=== PATIENT | male | born 1940 | race Caucasian/White ===

== ENCOUNTER 2024-05-16 13:20 | Outpatient (RCR) | payer OTHER, SELFPAY | END 2024-05-16 23:59 | disposition home or self-care (01) | LOC: RPT 13:20 | PROVIDERS: ATTENDING PHYSICIAN Nurse Practitioner Family; FAMILY PHYSICIAN Family Medicine | DX: Z47.1 Aftercare following joint replacement surgery (principal); Z96.611 Presence of right artificial shoulder joint; Z73.6 Limitation of activities due to disability | CPT/HCPCS: 97110; 97112; 97162 ==

== ENCOUNTER 2024-05-28 13:01 | Outpatient (RCR) | payer OTHER, SELFPAY | END 2024-05-28 23:59 | disposition home or self-care (01) | LOC: RPT 13:01 | PROVIDERS: ATTENDING PHYSICIAN Nurse Practitioner Family; FAMILY PHYSICIAN Family Medicine | DX: G57.92 Unspecified mononeuropathy of left lower limb (principal); R26.89 Other abnormalities of gait and mobility | CPT/HCPCS: 80048; 85025; 97110; 97112 ==

== ENCOUNTER 2024-05-28 14:09 | Emergency (ER) | payer OTHER, SELFPAY ==
[2024-05-28 14:12] VITALS: BP 113/62
[2024-05-28 15:45] VITALS: BP 109/57; BP 90/52; BP 95/54; PULSE 76; PULSE 80; PULSE 85
--- NOTE | 2024-05-28 15:49 | ED.GENMED ---
History of Present Illness
General
Chief Complaint: Blood Pressure Problem
Source: patient
Time Seen by Provider: 05/28/24 15:24
History of Present Illness
History of Present Illness:
83-year-old male with past medical history of [id number] diabetes presenting the emergency department from outpatient physical therapy where his blood pressure was noted to be low today and patient felt a little bit lightheaded during his
exercise. He reports that since getting to the emergency department his symptoms have fully resolved. notes that patient's blood pressure was also little bit low yesterday but patient denies any recent illnesses, fevers, nausea, vomiting,
bowel changes or any other concerns. 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 He has been going for the last few weeks without any problems. Patient is on losartan 50 mg p.o. once daily and reports good compliance with this.
He did this medication today. No other concerns at present time.
Past History
Past History
ED Past Medical History: NIDDM
ED Past Surgical History: Orthopedic and Other
Social History
Tobacco: Non-smoker
Alcohol: None
Drug: None
Personal:
Living: with family
Review of Systems
Review of Systems
All Other Systems: ROS reviewed and negative except as documented in HPI and ROS
Phy Exam
Physical Exam
Physical Exam:
GENERAL: Alert , in no apparent distress
HEAD: NCAT
EYE: conjunctiva clear
NECK: Supple
ENT: o/p clr, mmm.
CARDIAC: Regular rate and rhythm
LUNGS: Clear breath sounds bilaterally, no acute respiratory distress, no wheezes/rales/rhonchi
NEUROLOGICAL: Alert and oriented
SKIN: Warm and dry, skin intact.
MUSCULOSKELETAL: well perfused.
PSYCH: Normal and appropriate interaction.
Scores
Heart Failure Risk
Heart Failure Risk Score: Not Applicable
Heart Score for Chest Pain Patients
STEMI patient?: Not applicable
Withdrawal Assessment of Alcohol
Withdrawal Assessment Completed?: Not applicable
Course
Orders/Labs/Results
Orders:
Orders
05/28/24 15:43
Orthostatic VS- Treatment ONCE
05/28/24 15:54
0.9% Sodium Chloride 1000 ml [Nss] 1,000 ml IV BOLUS
05/28/24 16:04
Basic Metabolic Panel Urgent
Complete Blood Count/With Diff Urgent
Abnormal Lab Results
05/28/24
16:04
RBC 3.95 L 10^6/uL
(4.70-6.10)
Hct 37.6 L %
(39.0-52.0)
MCV 95.2 H fL
(80.0-94.0)
MCH 33.4 H pg
(27.0-31.0)
MPV 10.6 H fL
(7.4-10.4)
Absolute Monos (auto) 0.9 H 10^3/uL
(0.1-0.6)
Monocytes % 10.5 H %
(1.7-9.3)
Potassium 5.2 H mmol/L
(3.5-5.1)
BUN 24 H mg/dl
(9-20)
05/28/24 16:04
05/28/24 16:04
Vital Signs
Initial and Last Documented VS:
Initial Vital Signs
Temp Pulse Resp BP Pulse Ox
97.8 F 77 16 113/62 95
05/28/24 14:12 05/28/24 14:12 05/28/24 14:12 05/28/24 14:12 05/28/24 14:12
Last Documented Vital Signs
Temp Pulse Resp BP Pulse Ox
97.8 F 75 16 137/71 99
05/28/24 14:12 05/28/24 17:45 05/28/24 17:45 05/28/24 17:45 05/28/24 17:45
MDM/Problems Addressed
Differential Diagnosis Includes:
orthostasis, medication interaction, no signs/symptoms to suggest infection
MDM/Problems Addressed:
83-year-old male presenting the emergency department for evaluation of low blood pressure while at physical therapy. Noted some mild lightheadedness. I suspect orthostasis or medication interaction to be the most likely. I discussed with patient
that we will check orthostatics here. If his blood pressure remains low will check labs and treat with IV fluids. If normal and patient remains asymptomatic can be discharged home.
Chronic conditions affecting care: HTN
Acute Exacerbation and/or Progression of Chronic Illness: HTN
*Pulse Oximetry
Patient hypoxic: no
*Critical Care Note
Total Time (30-74mins, 75-104mins- exclusive of procedures): Not Applicable
Comment
Comment:
Patient was asymptomatic during orthostatics however his blood pressure was as low as 90/52. Will treat with 1 L normal saline and check labs. Disposition pending
Patient Management
Escalation/DeEscalation of care consider admission/obs:
Patient's blood pressure much improved following IV fluids. He reports he is asymptomatic and would like to be discharged home. I again discussed the importance of checking blood pressure at home over the next few days prior to taking his blood
pressure medicine as if he already has a low blood pressure and takes his blood pressure medicine is likely to lower his blood pressure further and can cause complications. I did encourage the patient to contact his primary care provider for close
follow-up. Aware of return precautions to the ER but otherwise stable for discharge home.
ED Attending Note
-
Portions of this chart may have been created with voice recognition software.� Occasional wrong word or��sound alike� substitutions may have occurred due to the inherent limitations of voice recognition software.
Discharge Plan
Departure
Patient Disposition: Home (Routine Discharge)
Date of Disposition: 05/28/24
Time of Disposition: 17:48
Patient with high blood pressure during this ER visit?: No
Discharge Problem:
Orthostasis
Instructions: Orthostatic hypotension
Referrals:
Doreen Paul NP [Family Provider] -
Interventions
Interventions:
*Risk Screen - Suicide Last Done: 05/28/24 14:12
*General Assessment Last Done: 05/28/24 14:12
*Neglect/Abuse Screening Last Done: 05/28/24 14:12
*Nursing Disposition Last Done: 05/28/24 17:58
ED- Cardiac Assessment Last Done: 05/28/24 16:47
ED- Neurological Assessment Last Done: 05/28/24 16:47
ED- Pulmonary Assessment Last Done: 05/28/24 16:47
Discharge Date and Time
Discharge Date/Time: 05/28/24 17:59
Print Language: SPANISH
[2024-05-28 15:54] VITALS: BMI 23.6
[2024-05-28] MEDS: NSS 1000 IV (16:02)
[2024-05-28 16:17] LABS: % Basophils 0.4 % (0-2); % Eosinophils 1.9 % (0-6); % Immature Granulocytes 0.2 % (0-0.5); % Monocytes 10.5 % (1.7-9.3); Absolute Eosinophils 0.2 10^3/uL (0-0.7); Absolute Lymphocytes 2.6 10^3/uL (1.2-3.4); Absolute Monocytes 0.9 10^3/uL (0.1-0.6); Absolute Neutrophils 4.9 10^3/uL (1.4-6.5); Hematocrit 37.6 % (39.0-52.0); Hemoglobin 13.2 g/dL (13.0-18.0); Mean Corp Hgb Conc. 35.1 g/dL (33.0-37.0); Mean Corpuscular Hgb 33.4 pg (27.0-31.0); Mean Corpuscular Volume 95.2 fL (80.0-94.0); Mean Platelet Volume 10.6 fL (7.4-10.4); Nucleated Red Blood Cells % 0 % (-); Platelet Count 175 10^3/uL (130-400); Red Blood Cell Count 3.95 10^6/uL (4.70-6.10); Red Cell Dist. Width 14.2 % (11.5-14.5); White Blood Cell Count 8.5 10^3/uL (4.8-10.8)
[2024-05-28 16:27] VITALS: BP 104/55
[2024-05-28 16:37] LABS: Blood Urea Nitrogen 24 mg/dl (9-20); Calcium 9.8 mg/dl (8.4-10.2); Carbon Dioxide 26 mmol/L (22-30); Chloride 105 mmol/L (98-107); Estimated Creatinine Clearance 63 ml/min; Glucose 96 mg/dl (70-99); Potassium 5.2 mmol/L (3.5-5.1); Sodium 140 mmol/L (135-145); eGFR > 60.00
[2024-05-28 17:00] VITALS: BP 121/64
[2024-05-28 17:45] VITALS: BP 137/71
== END 2024-05-28 17:59 | disposition home or self-care (01) ==
LOC: EMR 14:09
PROVIDERS: Physician Assistant Medical; EMERGENCY PHYSICIAN Emergency Medicine; FAMILY PHYSICIAN Nurse Practitioner Family
DX: I95.1 Orthostatic hypotension (principal); R42 Dizziness and giddiness; E11.40 Type 2 diabetes mellitus with diabetic neuropathy, unspecified; Z79.899 Other long term (current) drug therapy
CPT/HCPCS: 99284; 96360; 80048; 85025

== ENCOUNTER 2024-08-15 07:22 | Outpatient (RCR) | payer OTHER, SELFPAY | END 2024-08-15 23:59 | disposition home or self-care (01) | LOC: RPT 07:22 | PROVIDERS: ATTENDING PHYSICIAN Nurse Practitioner Family; FAMILY PHYSICIAN Family Medicine | DX: G57.92 Unspecified mononeuropathy of left lower limb (principal); R53.1 Weakness; R26.89 Other abnormalities of gait and mobility; Z73.6 Limitation of activities due to disability; R26.2 Difficulty in walking, not elsewhere classified | CPT/HCPCS: 97110; 97162 ==

== ENCOUNTER 2024-09-19 11:02 | Outpatient (RCR) | payer OTHER, SELFPAY | END 2024-09-19 23:59 | disposition home or self-care (01) | LOC: RPT 11:02 | PROVIDERS: ATTENDING PHYSICIAN Nurse Practitioner Family; FAMILY PHYSICIAN Family Medicine | DX: G57.92 Unspecified mononeuropathy of left lower limb (principal); R53.1 Weakness; R26.89 Other abnormalities of gait and mobility; Z73.6 Limitation of activities due to disability | CPT/HCPCS: 97110; 97112; 97530 ==

== ENCOUNTER 2024-10-15 11:17 | Outpatient (RCR) | payer OTHER, SELFPAY | END 2024-10-15 23:59 | disposition home or self-care (01) | LOC: RPT 11:17 | PROVIDERS: ATTENDING PHYSICIAN Nurse Practitioner Family; FAMILY PHYSICIAN Family Medicine | DX: G57.92 Unspecified mononeuropathy of left lower limb (principal); R53.1 Weakness; R26.89 Other abnormalities of gait and mobility; Z73.6 Limitation of activities due to disability | CPT/HCPCS: 97110; 97112; 97530 ==

== ENCOUNTER 2024-11-19 11:03 | Outpatient (RCR) | payer OTHER, SELFPAY | END 2024-11-19 23:59 | disposition home or self-care (01) | LOC: RPT 11:03 | PROVIDERS: ATTENDING PHYSICIAN Nurse Practitioner Family; FAMILY PHYSICIAN Family Medicine | DX: G57.92 Unspecified mononeuropathy of left lower limb (principal); R53.1 Weakness; R26.89 Other abnormalities of gait and mobility; Z73.6 Limitation of activities due to disability | CPT/HCPCS: 97110; 97112; 97530 ==

== ENCOUNTER 2024-12-19 11:21 | Outpatient (RCR) | payer OTHER, SELFPAY | END 2024-12-19 23:59 | disposition home or self-care (01) | LOC: RPT 11:21 | PROVIDERS: ATTENDING PHYSICIAN Nurse Practitioner Family; FAMILY PHYSICIAN Family Medicine | DX: G57.92 Unspecified mononeuropathy of left lower limb (principal); R53.1 Weakness; R26.89 Other abnormalities of gait and mobility; Z73.6 Limitation of activities due to disability; R26.2 Difficulty in walking, not elsewhere classified | CPT/HCPCS: 97110; 97112; 97530 ==

== ENCOUNTER 2024-12-25 10:00 | Outpatient (RCR) | payer OTHER, SELFPAY | END 2024-12-26 11:41 | disposition home or self-care (01) | LOC: RPT 10:00 | PROVIDERS: ATTENDING PHYSICIAN Nurse Practitioner Family; FAMILY PHYSICIAN Family Medicine | DX: G57.92 Unspecified mononeuropathy of left lower limb (principal); R53.1 Weakness; R26.89 Other abnormalities of gait and mobility; Z73.6 Limitation of activities due to disability; R26.2 Difficulty in walking, not elsewhere classified | CPT/HCPCS: 97110; 97112; 97530 ==

== ENCOUNTER 2025-03-11 12:15 | Outpatient (RCR) | payer OTHER, SELFPAY | END 2025-03-11 23:59 | disposition home or self-care (01) | LOC: RPT 12:15 | PROVIDERS: ATTENDING PHYSICIAN Nurse Practitioner Family; FAMILY PHYSICIAN Family Medicine | DX: G57.92 Unspecified mononeuropathy of left lower limb (principal); R26.89 Other abnormalities of gait and mobility; Z73.6 Limitation of activities due to disability; R26.2 Difficulty in walking, not elsewhere classified; M62.81 Muscle weakness (generalized) | CPT/HCPCS: 97110; 97162 ==

== ENCOUNTER 2025-04-15 12:02 | Outpatient (RCR) | payer OTHER, SELFPAY | END 2025-04-15 23:59 | disposition home or self-care (01) | LOC: RPT 12:02 | PROVIDERS: ATTENDING PHYSICIAN Nurse Practitioner Family; FAMILY PHYSICIAN Family Medicine | DX: G57.92 Unspecified mononeuropathy of left lower limb (principal); R26.89 Other abnormalities of gait and mobility; Z73.6 Limitation of activities due to disability; R26.2 Difficulty in walking, not elsewhere classified; M62.81 Muscle weakness (generalized) | CPT/HCPCS: 97110; 97530 ==

== ENCOUNTER 2025-05-15 13:16 | Outpatient (RCR) | payer OTHER, SELFPAY | END 2025-05-15 23:59 | disposition home or self-care (01) | LOC: RPT 13:16 | PROVIDERS: ATTENDING PHYSICIAN Nurse Practitioner Family; FAMILY PHYSICIAN Family Medicine | DX: G57.92 Unspecified mononeuropathy of left lower limb (principal); R26.89 Other abnormalities of gait and mobility; Z73.6 Limitation of activities due to disability; R26.2 Difficulty in walking, not elsewhere classified; M62.81 Muscle weakness (generalized) | CPT/HCPCS: 97110; 97530 ==

== ENCOUNTER 2025-06-19 13:57 | Outpatient (RCR) | payer OTHER, SELFPAY | END 2025-06-19 23:59 | disposition home or self-care (01) | LOC: RPT 13:57 | PROVIDERS: ATTENDING PHYSICIAN Nurse Practitioner Family; FAMILY PHYSICIAN Family Medicine | DX: G57.92 Unspecified mononeuropathy of left lower limb (principal); R26.89 Other abnormalities of gait and mobility; Z73.6 Limitation of activities due to disability; R26.2 Difficulty in walking, not elsewhere classified; M62.81 Muscle weakness (generalized) | CPT/HCPCS: 97110; 97530 ==